=== PATIENT | male | born 1965 | race Caucasian/White ===

== ENCOUNTER 2024-05-22 16:01 | Observation (INO) | payer OTHER, SELFPAY ==
[2024-05-22 12:46] VITALS: BP 140/107
[2024-05-22 12:49] LABS: Glucose - Point of Care 360 mg/dl (70-99)
[2024-05-22 13:12] LABS: Urine Albumin 1+ (Neg - Trace); Urine Bilirubin Negative (Negative); Urine Character Clear (Clear); Urine Color Yellow; Urine Glucose 4+ (Negative); Urine Ketone 2+ (Negative); Urine Leukocyte Negative (Negative); Urine Nitrite Negative (Negative); Urine Occult Blood Negative (Negative); Urine Specific Gravity 1.015 (<1.030); Urine Urobilinogen Negative (Neg - 1+)
[2024-05-22 13:39] LABS: Urine Mucus Few
[2024-05-22 13:40] LABS: Urine Squamous Cell 0-2 /LPF (Few)
[2024-05-22 13:41] LABS: Urine Bacteria Few (Negative); Urine Red Blood Cell 0-2 /HPF (0-2); Urine White Cell 0-2 /HPF (0-5)
[2024-05-22] MEDS: NSS 1000 IV ×3 (13:41→17:22)
[2024-05-22 13:50] LABS: % Basophils 1.5 % (0-2); % Eosinophils 2.1 % (0-6); % Immature Granulocytes 0.4 % (0-0.5); % Monocytes 8.7 % (1.7-9.3); % Neutrophils 62.3 % (42.2-75.2); Absolute Basophils 0.1 10^3/uL (0-0.2); Absolute Eosinophils 0.1 10^3/uL (0-0.7); Absolute Lymphocytes 1.2 10^3/uL (1.2-3.4); Absolute Monocytes 0.4 10^3/uL (0.1-0.6); Absolute Neutrophils 2.9 10^3/uL (1.4-6.5); Hematocrit 40.4 % (39.0-52.0); Hemoglobin 14.7 g/dL (13.0-18.0); Mean Corp Hgb Conc. 36.4 g/dL (33.0-37.0); Mean Corpuscular Hgb 29.9 pg (27.0-31.0); Mean Corpuscular Volume 82.3 fL (80.0-94.0); Nucleated Red Blood Cells % 0 % (-); Platelet Count 207 10^3/uL (130-400); Red Blood Cell Count 4.91 10^6/uL (4.70-6.10); Red Cell Dist. Width 13.6 % (11.5-14.5); White Blood Cell Count 4.7 10^3/uL (4.8-10.8)
[2024-05-22 14:00] VITALS: BP 111/69
[2024-05-22 14:11] LABS: ALT (SGPT) 41 U/L (0-50); AST (SGOT) 25 U/L (17-59); Albumin 4.2 g/dl (3.5-5.0); Alkaline Phosphatase 142 U/L (38-126); Blood Urea Nitrogen 15 mg/dl (9-20); Calcium 9.1 mg/dl (8.4-10.2); Carbon Dioxide 20 mmol/L (22-30); Chloride 99 mmol/L (98-107); Glucose 360 mg/dl (70-99); Potassium 4.3 mmol/L (3.5-5.1); Sodium 129 mmol/L (135-145); Total Bilirubin 1.2 mg/dl (0.2-1.3); Total Protein 6.9 g/dl (6.3-8.2); eGFR > 60.00
[2024-05-22 14:18] LABS: B-Hydroxybutyrate 0.42 mmol/L (0.02-0.27)
[2024-05-22 15:00] VITALS: BP 99/65
--- NOTE | 2024-05-22 15:09 | HPS.HSE ---
Family Physician
-
Family Physician: Carmen Reyna
Chief Complaint
-
abnormal labs, diabetes
History of Present Illness
Mr. Bennett Gaines is a 58 yo man with hx CAD, HTN, HLD, GERD, RA sent to the ER with new diagnosis diabetes and abnormal labs.
Patient states a few weeks ago, his roommate came home with a [place] ice cream and after eating this he had this sensation of constant thirst and frequent urination. Previous to this he denies eating a diet high in sugar intake, does not drink
sodas. He received labs as outpatient yesterday (ordered by his RA) and he was noted to have elevated glucose, HgA1c of 11. He was sent to the ER for concern for DKA.
Currently denies fevers/chills, no chest pain or shortness of breath. No nausea/vomiting/diarrhea. Mild LLQ pain thought 2/2 gas. Had normal BM earlier. No LE swelling.
Medical History
Past Medical History
Past Medical History: Reports Other ( CAD, HTN, HLD, GERD)
Past Surgical History: Reports Other
Social History
Tobacco: Former Smoker (quit one year ago)
Alcohol: None
Family History
Family History: Not pertinent
Allergies / Home Medications
Allergies reflects when Allergies were last updated in [facility].
Home Medications with original date entered in [facility]
Allergy/Medication List:
Allergies
Allergy/AdvReac Type Severity Reaction Status Date / Time
hydrochlorothiazide Allergy Pharmacy Verified 10/02/20 13:37
[From [facility]] to Review
lisinopril Allergy COUGH Verified 10/02/20 13:37
losartan potassium Allergy Pharmacy Verified 10/02/20 13:37
[From [facility]] to Review
Penicillins Allergy Rash Verified 10/02/20 13:37
PISTACHIO NUTS Allergy Rash Uncoded 10/02/20 13:37
seasonal Allergy asthma Uncoded 10/02/20 13:37
Home Medications
cholecalciferol (vitamin D3) 25 mcg (1,000 unit) capsule (Vitamin D3) 1,000 unit PO DAILY 07/21/20
escitalopram oxalate 10 mg tablet 10 mg PO DAILY 07/21/20
omeprazole magnesium 20 mg tablet,delayed release (Prilosec OTC) 20 mg PO DAILY 07/21/20
aspirin 81 mg tablet,delayed release 81 mg PO DAILY 05/22/24
atorvastatin 40 mg tablet (Lipitor) 40 mg PO QPM 05/22/24
etanercept 50 mg/mL (1 mL) subcutaneous syringe (Enbrel) 50 mg SC FR 05/22/24
meloxicam 15 mg tablet 15 mg PO DAILYPRN PRN mild pain 05/22/24
Review of Systems
-
History Source: Patient
A 12 point ROS was completed and negative except as noted: Yes
Physical Exam
Vital Signs
Vital Signs
Temp Pulse Resp BP Pulse Ox
98.5 F 72 17 111/69 95
05/22/24 12:46 05/22/24 14:45 05/22/24 14:45 05/22/24 14:00 05/22/24 14:30
Physical Exam
General: No Apparent Distress and Conversant
Respiratory: Clear; No Wheezes
Cardiac: S1/S2 and Regular Rhythm
GI: Soft and Non Tender
Musculoskeletal: No Edema
Skin: Warm and Dry; No Rash
Neuro: AO x 3
Psych: Calm
Laboratory Results
-
05/22/24 13:40
05/22/24 13:40
Laboratory Results
Total Bilirubin 1.2 mg/dl (0.2-1.3) 05/22/24 13:40
AST 25 U/L (17-59) 05/22/24 13:40
ALT 41 U/L (0-50) 05/22/24 13:40
Alkaline Phosphatase 142 U/L (38-126) H 05/22/24 13:40
Data Reviewed
-
Diagnostic Radiology: Report Reviewed by me
Lab Data: Labs Reviewed by me
Impression/Plan
-
Mr. Bennett Gaines is a 58 yo man with hx CAD, HTN, HLD, GERD sent to the ER with new diagnosis diabetes and abnormal labs.
Triage VS: T 98.5, P 96, RR 18, BP 140/107, SpO2 98% RA
LABS: WBC 4.7, Hg 14.7, PLT 207, Na 129 (corrected 133), K+ 4.3, Cl 99, CIO2 20, BUN 15, Cr 0.7, Glucose 360, T. Bili 1.2, AST 25, ALT 41, Alk Phos 142
AG = 10
MAR NS IVF x 2
Uncontrolled DM with Hyperglycemia
-CO2 20; AG = 10 therefore does not meet criteria for DKA
-s/p 2 L NS IVF
-case discussed between ER and Dr. Akhtar, recommends admission for insulin teaching etc.
-will give Lantus 10 units x 1 now
-admit to med/surg, Observation
-ISS low
-keep NPO until BGL < 250 (NS while NPO)
-LIQUIFIED NATURAL GAS SPECIALIST DM consult
CAD
-DIRECTOR DATABASE Asa/statin
Anxiety/Depression
-DIRECTOR DATABASE Lexapro
RA
-DIRECTOR DATABASE Enbrel
GERD
-DIRECTOR DATABASE PPI
Pseudohyponatremia
DVT PPx Lovenox subQ
FULL CODE
[2024-05-22] MEDS: LANTUS 0.1 UNITS SC (15:44)
[2024-05-22 16:00] VITALS: BP 104/73
[2024-05-22 16:28] VITALS: BP 113/82
[2024-05-22 16:29] VITALS: BMI 23.2
[2024-05-22 17:30] LABS: Glucose - Point of Care 278 mg/dl (70-99)
[2024-05-22] MEDS: NOVOLOG FLEXPEN-LOW RESISTANCE 3 UNITS SC (17:57)
[2024-05-22] MEDS: LOVENOX 40 MG SC (18:58)
[2024-05-22] MEDS: LIPITOR PO (18:58)
[2024-05-22] MEDS: TYLENOL 650 MG PO (18:59)
[2024-05-22 20:36] LABS: Blood Urea Nitrogen 13 mg/dl (9-20); Calcium 8.4 mg/dl (8.4-10.2); Carbon Dioxide 21 mmol/L (22-30); Chloride 104 mmol/L (98-107); Estimated Creatinine Clearance > 125 ml/min; Glucose 219 mg/dl (70-99); Potassium 3.8 mmol/L (3.5-5.1); Sodium 134 mmol/L (135-145); eGFR > 60.00
[2024-05-22 22:43] LABS: Glucose - Point of Care 213 mg/dl (70-99)
[2024-05-22 23:14] VITALS: BP 107/69
[2024-05-23] MEDS: NSS 1000 IV (06:11)
[2024-05-23 07:11] VITALS: BP 99/64
--- NOTE | 2024-05-23 07:51 | PN.DE.MGMTRT ---
Insulin Management
- -
05/23/2024: Diabetes management Consult
58 year old male with PMH: CAD, HTN, HLD, GERD, RA, Anxiety and Depression, sent to the ER with new diagnosis diabetes and abnormal labs.
Patient states a few weeks ago, his roommate came home with a [place] ice cream and after eating this he had this sensation of constant thirst and frequent urination. Previous to this he denies eating a diet high in sugar intake, does not drink
sodas. He had outpatient labs yesterday that showed elevated glucose, HgA1c of 11. He was sent to the ER for concern for DKA. Glucose on admission was 360. Pt was started on Lantus 10 units and low corrective insulin with meals
Pt awake, alert, oriented, sitting up in bed, eating lunch, offers no complaints, able to discuss diabetes care plan.
Glucose remains elevated >200. HS glucose was 219 and FBG 255(V), 250 POC this AM. A1C 11%, Cr 0.6, eGFR >60
Nursing reports that pt is constantly asking for food and is eating more than his allotted calories.
Will start Lantus 15 units @ hs, NovoLog 6 units AC and Metformin 500mg BID. Anticipate higher insulin requirements given current A1C and excessive eating.
Will cont to follow. Consult Dietitian for malnutrition.
Diabetes History
- -
Type of Diabetes: 2 requiring insulin
Pre-Admission Diabetes Regimen
05/22/24 05/22/24 05/22/24
13:40 20:00 20:13
Creatinine 0.7 Cancelled 0.6 L
Insulin Pump Settings
IP Diabetes Regimen
05/22/24 05/22/24 05/22/24
12:48 13:40 17:29
Glucose 360 H
POC Glucose 360 H 278 H
05/22/24 05/22/24 05/22/24
20:00 20:13 22:42
Glucose Cancelled 219 H
POC Glucose 213 H
Patient Education
[2024-05-23 07:59] LABS: Glucose - Point of Care 250 mg/dl (70-99)
[2024-05-23 08:46] LABS: Hematocrit 35.9 % (39.0-52.0); Mean Corp Hgb Conc. 36.2 g/dL (33.0-37.0); Mean Corpuscular Hgb 30.5 pg (27.0-31.0); Mean Corpuscular Volume 84.3 fL (80.0-94.0); Mean Platelet Volume 11.6 fL (7.4-10.4); Platelet Count 179 10^3/uL (130-400); Red Blood Cell Count 4.26 10^6/uL (4.70-6.10); Red Cell Dist. Width 13.7 % (11.5-14.5); White Blood Cell Count 3.2 10^3/uL (4.8-10.8)
[2024-05-23] MEDS: NOVOLOG FLEXPEN-LOW RESISTANCE 3 UNITS SC ×2 (08:56→18:31)
[2024-05-23] MEDS: NOVOLOG FLEXPEN 6 UNITS SC ×2 (08:57→12:14)
[2024-05-23] MEDS: PROTONIX 40 MG PO (08:58)
[2024-05-23] MEDS: LEXAPRO 10 MG PO (08:58)
[2024-05-23] MEDS: ASPIR LOW (ENTERIC COATED) 81 MG PO (08:58)
[2024-05-23] MEDS: LIPITOR 40 MG PO (08:59)
[2024-05-23 09:22] LABS: Blood Urea Nitrogen 9 mg/dl (9-20); Calcium 8.3 mg/dl (8.4-10.2); Carbon Dioxide 22 mmol/L (22-30); Chloride 106 mmol/L (98-107); Estimated Creatinine Clearance > 125 ml/min; Glucose 255 mg/dl (70-99); Magnesium 1.9 mg/dl (1.6-2.3); Potassium 3.9 mmol/L (3.5-5.1); Sodium 135 mmol/L (135-145); eGFR > 60.00
--- NOTE | 2024-05-23 09:50 | W.PN.HOSP.TC ---
Addendum entered and electronically signed by Arorn Hernandez MD 05/23/24 22:23:
Attending Addendum-
I saw and evaluated the patient. I reviewed the resident�s note and agree with findings and plan as documented in the resident�s note. Sub: complains of BAILEY. No other complaints. Ready to go home. Full 12 point ROS reviewed and negative except as
documented Exam: Vitals reviewed in chart GEN-NAD heart RRR lungs clear abd soft LE no edema
#Uncontrolled DM with Hyperglycemia
-hba1c- 11
-UNDERGROUND PRODUCTION FOREPERSON DM consult appreciated and insulin dose adjusted
-patient educated and counselled scripts sent
-L15 N6
#CAD
-ETIOLOGIST Asa/statin
#Anxiety/Depression
-ETIOLOGIST Lexapro
#RA
-ETIOLOGIST Enbrel
#GERD
-ETIOLOGIST PPI
#Pseudohyponatremia
-resolved
# Leukopenia-
repeat CBC as OP
DVT PPx Lovenox subQ
FULL CODE
Dispo DC home
Time spent coordinating care, DC planning, review of DC plan of care with resident, transition of care, review of records, med rec/scripts sent electronically, consults, notes, d/w consultants, nursing, DM education/counselling, and CM� 32 mins
Original Note:
Today's Communication/Plan
-
Diabetic nurse consult and education
discharge
Assessment / Plan
Assessment / Plan
58-year-old male with past medical history of hypertension, hyperlipidemia, arthritis, prostate cancer status post radiation therapy 4 years ago, GERD, history of alcohol use disorder clean for past 7 years, depression, presented to the ED with
increased sensation of constant thirst, frequent urination, elevated glucose, hemoglobin A1c 11. He was sent to the ED by his swatch cutter for concerns of DKA. He is also complaining of left lower quadrant pain that started about 2 weeks ago at
the same time of his increased sensation of thirst and frequency of urination. Complains of pain in lower back as well. Abdominal pain is constant 3 out of 10 pain, however worse when he eats 5 out of 10. Has regular bowel movements, denies
diarrhea or constipation. Anion gap of 10 so did not meet criteria DKA. Put on n.p.o. until blood glucose range less than 250, insulin, fluids.
Uncontrolled DM with hyperglycemia
-Glucose on admission 360, Anion gap 10
-HgA1c 11
-s/p 4L fluids
-Diabetic nurse consult
-s/p 10 units lantus and 12 units aspart
-BG now 255
-Start diabetic diet
-IGG4 pending to eval type 1 diabetes as type 2 less likely given pts healthy lifestyle
LLQ/LUQ pain and lower pack pain
-Hx prostate cancer s/p radiation therapy
-Has noticed recent weight loss, denies recent fever or chills
-PSA wnl
-Further eval outpatient his PCP was notified
CAD
-Continue asa and statin
Anxiety/depression
-Cont lexapro
RA
-Continue etanercept
GERD
-Cont PPI
Pseudohyponatremia
-resolved
DVT lovenox
Full code
Anticipated Discharge: Today
Subjective/Interval History
-
Date of Service: May 23, 2024
Feels foggy, but overall okay
Objective Data
-
Labs:
Laboratory Results
05/23/24
07:59
WBC 3.2 L
Hgb 13.0
Hct 35.9 L
Plt Count 179
Sodium 135
Potassium 3.9
Chloride 106
Carbon Dioxide 22
BUN 9
Creatinine 0.6 L
Glucose 255 H
Calcium 8.3 L
Vital Signs:
Vital Signs
Temp Pulse Resp BP Pulse Ox
97.0 F 61 18 99/64 93
05/23/24 07:11 05/23/24 07:11 05/23/24 07:11 05/23/24 07:11 05/23/24 07:11
I&O
05/22/24 05/23/24 05/24/24
06:59 06:59 06:59
Intake Total 0 / 0
Output Total 0 / 0
Balance 0 / 0
Review of Systems
-
History Source: Patient
EENT: Reports Other (decreased thirst from prior )
Respiratory: Reports No Symptoms
Cardiac: Reports No Symptoms
Abdomen/GI: Reports Abdominal Pain; Denies Nausea, Vomiting, Diarrhea or Constipated
Genitourinary: Reports Frequency (Decreased from prior)
Skin: Reports No Symptoms
Neuro: Reports No Symptoms
Physical Exam
-
General: Well Developed, No Apparent Distress and Comfortable
HEENT: Normocephalic
Respiratory: Clear to Auscultation
Cardiac: Regular Rhythm and S1/S2
GI: Soft, Nondistended, Normal Bowel Sounds and Tender (LUQ, RLQ and LLQ tenderness with palpation, no rebound or guarding. No mid-epigastric )
Musculoskeletal: No Edema
Skin: Warm
Neuro: AO x 3
Psych: Calm
[2024-05-23 11:34] LABS: Glucose - Point of Care 304 mg/dl (70-99)
[2024-05-23 11:37] LABS: PSA, Total - Screen 0.28 ng/ml (0.0-4.0)
[2024-05-23] MEDS: NOVOLOG FLEXPEN-LOW RESISTANCE 4 UNITS SC (12:13)
--- NOTE | 2024-05-23 14:40 | PN.DE.MGMTRT ---
Insulin Management
- -
05/23/2024: Diabetes management Consult
58 year old male with PMH: CAD, HTN, HLD, GERD, RA, Anxiety and Depression, sent to the ER with new diagnosis diabetes and abnormal labs.
Patient states a few weeks ago, his roommate came home with a [place] ice cream and after eating this he had this sensation of constant thirst and frequent urination. Previous to this he denies eating a diet high in sugar intake, does not drink
sodas. He had outpatient labs yesterday that showed elevated glucose, HgA1c of 11. He was sent to the ER for concern for DKA. Glucose on admission was 360. Pt was started on Lantus 10 units and low corrective insulin with meals
Pt awake, alert, oriented, sitting up in bed, eating lunch, offers no complaints, able to discuss diabetes care plan.
Glucose remains elevated >200. HS glucose was 219 and FBG 255(V), 250 POC this AM. A1C 11%, Cr 0.6, eGFR >60
Will start Lantus 15 units @ HS, NovoLog 6 units AC and Metformin 500mg BID. Anticipate higher insulin requirements given current A1C
Will cont to follow. Pt will be seen by Diabetes Nurse Educator for insulin and glucose monitor instructions today
Will consult railroad crossing protection maintainer for New onset Diabetes.
Diabetes History
- -
Type of Diabetes: 2 requiring insulin
Pre-Admission Diabetes Regimen
05/22/24 05/22/24 05/23/24
20:00 20:13 07:59
Creatinine Cancelled 0.6 L 0.6 L
Lab Results
Hemoglobin A1c 11.0 % (4.0-5.6) H 05/22/24 13:40
Insulin Pump Settings
IP Diabetes Regimen
05/22/24 05/22/24 05/22/24
17:29 20:00 20:13
Glucose Cancelled 219 H
POC Glucose 278 H
05/22/24 05/23/24 05/23/24
22:42 07:58 07:59
Glucose 255 H
POC Glucose 213 H 250 H
05/23/24
11:33
Glucose
POC Glucose 304 H
Patient Education
[2024-05-23 15:12] VITALS: BP 99/68
--- NOTE | 2024-05-23 16:36 | CM ---
rate manager viewed patient's chart and patient was admitted under OBS, OBS letter provided to patient, patient lives with roommate, is independent with adl's and ambulation, no dme, patient is for discharge to home today, patient is new diabetic.
PCP: Carmen Reyna
Pharmacy [facility] in [place].
Plan; Home today,.
--- NOTE | 2024-05-23 17:11 | PTCARENOTE ---
I met with Bennett to discuss diabetes self management education. He stated his blood work was not clear if he had type 1 or type 2 diabetes. I reviewed both type 1 and type 2 diabetes and encouraged him to register for the outpatient DSME course. I
assisted in setting up a contour Next EZ glucometer. Bennett had previously purchased a Contour meter at the pharmacy prior to admission and had been monitoring his numbers. Target glucose levels were reviewed and educational material was provided. I
discussed continuous glucose monitoring and provided printed material for him to discuss with his PCP. Long and rapid acting insulin was reviewed; onset/peak duration. Storage and safe administration was discussed and he was able to administer a
practice injection. I encouraged him to give all injections while admitted with the RN supervision. Hyper and hypoglycemia was discussed. Bennett verbalized understanding of low blood sugar treatment and will carry glucose with him at all times. I
encouraged him to wear medical identification and provided resources.
--- NOTE | 2024-05-23 17:24 | W.DCSUMMARY ---
Addendum entered and electronically signed by Arron Hernandez MD 05/23/24 22:24:
Read, reviewed, and agree. See same day progress note for additional details. Metformin added to regimen.
Iain Hernandez MD
Original Note:
Documented by User: Maryann Gaitan MD, Resident 05/23/24 17:29
Discharge Summary
Discharge Data
Date of Admission: 05/22/24
Date of Discharge: 05/23/24
-
Pending Results: Yes
Additional Pending Results:
IGG4
Hospital Course
Primary diagnosis:
Uncontrolled diabetes mellitus with hyperglycemia
Secondary diagnosis:
CAD
Anxiety/depression
Rheumatoid arthritis
GERD
Pseudohyponatremia
Hospital course:
Uncontrolled DM with hyperglycemia
-Recommended to come to ED by quarter folder after lab work results for concerns of DKA and complaints of insatiable thirst and increased urination
-Glucose on admission 360, Anion gap 10
-HgA1c 11
-provided fluids
-Diabetic nurse consult and diabetic education
-IGG4 pending to eval type 1 diabetes as type 2 less likely given pts healthy lifestyle
-Provided insulin at discharge with referral to machining engineer and close follow up with PCP
LLQ/LUQ pain and lower pack pain
-Hx prostate cancer s/p radiation therapy
-Has noticed recent weight loss, denies recent fever or chills
-PSA within normal limits
-Further eval outpatient recommended. His PCP was notified
Today, patient is stable for discharge. Patient provided education on diabetes and appropriate medical therapy. Recommend close follow up with PCP and machining engineer. Unclear cause of sudden onset diabetes.
Discharge Plan
-
Patient Disposition: Home (Routine Discharge)
Discharge Diagnosis/Procedures: New onset diabetes mellitus with hyperglycemia
Condition: Good
Diet: Diabetic, Carb Controlled
Activity: As tolerated
Driving Restrictions: As prior to admission
Bathing Restrictions: None
Referrals:
Farida Akhtar MD [Consulting Staff] - in one to two weeks
Carmen Reyna MD [Family Provider] - in less than 1 week
Prescriptions:
New
metformin 500 mg Tablet
500 mg PO BID@0800,1700 Qty: 60 0RF
Rx Instructions:
take twice a day with food
(DME) Contour Next Test Strips Strip
Qty: 200 0RF
Rx Instructions:
PATIENT TESTING 4 TIMES A DAY
insulin aspart U-100 [Novolog FlexPen U-100 Insulin] 100 unit/mL (3 mL) Insulin Pen
6 unit SC AC Qty: 5 0RF
Rx Instructions:
TAKE 6 UNOTS BEFORE EACH MEAL
insulin glargine [Lantus Solostar U-100 Insulin] 100 unit/mL (3 mL) Insulin Pen
15 unit SC HS Qty: 5 0RF
Rx Instructions:
TAKE 15 UINITS AT BEDTIME
(DME) lancets [Microlet Lancet] Misc
Qty: 200 0RF
Rx Instructions:
Pt testing 4 times a day
(DME) pen needle, diabetic [Ijeoma 2nd Gen Pen Needle] 32 gauge x 5/32' Needle
Qty: 200 0RF
Rx Instructions:
Pt tAKING INSULIN 4 times a day
Continued
cholecalciferol (vitamin D3) [Vitamin D3] 1,000 UNIT capsule
1,000 unit PO DAILY
escitalopram oxalate 10 MG tablet
10 mg PO DAILY
omeprazole magnesium [Prilosec OTC] 20 MG tablet,delayed release (DR/EC)
20 mg PO DAILY
atorvastatin [Lipitor] 40 mg Tablet
40 mg PO QPM
meloxicam 15 mg Tablet
15 mg PO DAILYPRN PRN (Reason: mild pain)
aspirin 81 mg Tablet,Delayed Release (Dr/Ec)
81 mg PO DAILY
Enbrel 50 mg/mL (1 mL) Syringe
50 mg SC FR
Discharge Orders:
Discharge Patient (As Directed); Ordered 05/23/24
Ordered By: Maryann Gaitan
Discharge Date and Time
Discharge Date/Time: 05/23/24 18:49
Print Language: PU[place] R[place]

Documented by User: Arron Hernandez MD 05/23/24 22:19
Discharge Summary
Discharge Data
Date of Admission: 05/22/24
Date of Discharge: 05/23/24
Discharge Plan
-
Patient Disposition: Home (Routine Discharge)
Discharge Diagnosis/Procedures: New onset diabetes mellitus with hyperglycemia
Condition: Good
Diet: Diabetic, Carb Controlled
Activity: As tolerated
Driving Restrictions: As prior to admission
Bathing Restrictions: None
Referrals:
Farida Akhtar MD [Consulting Staff] - in one to two weeks
Carmen Reyna MD [Family Provider] - in less than 1 week
Prescriptions:
New
metformin 500 mg Tablet
500 mg PO BID@0800,1700 Qty: 60 0RF
Rx Instructions:
take twice a day with food
(DME) Contour Next Test Strips Strip
Qty: 200 0RF
Rx Instructions:
PATIENT TESTING 4 TIMES A DAY
insulin aspart U-100 [Novolog FlexPen U-100 Insulin] 100 unit/mL (3 mL) Insulin Pen
6 unit SC AC Qty: 5 0RF
Rx Instructions:
TAKE 6 UNOTS BEFORE EACH MEAL
insulin glargine [Lantus Solostar U-100 Insulin] 100 unit/mL (3 mL) Insulin Pen
15 unit SC HS Qty: 5 0RF
Rx Instructions:
TAKE 15 UINITS AT BEDTIME
(DME) lancets [Microlet Lancet] Misc
Qty: 200 0RF
Rx Instructions:
Pt testing 4 times a day
(DME) pen needle, diabetic [Ijeoma 2nd Gen Pen Needle] 32 gauge x 5/32' Needle
Qty: 200 0RF
Rx Instructions:
Pt tAKING INSULIN 4 times a day
Continued
cholecalciferol (vitamin D3) [Vitamin D3] 1,000 UNIT capsule
1,000 unit PO DAILY
escitalopram oxalate 10 MG tablet
10 mg PO DAILY
omeprazole magnesium [Prilosec OTC] 20 MG tablet,delayed release (DR/EC)
20 mg PO DAILY
atorvastatin [Lipitor] 40 mg Tablet
40 mg PO QPM
meloxicam 15 mg Tablet
15 mg PO DAILYPRN PRN (Reason: mild pain)
aspirin 81 mg Tablet,Delayed Release (Dr/Ec)
81 mg PO DAILY
Enbrel 50 mg/mL (1 mL) Syringe
50 mg SC FR
Discharge Orders:
Discharge Patient (As Directed); Ordered 05/23/24
Ordered By: Maryann Gaitan
Discharge Date and Time
Discharge Date/Time: 05/23/24 18:49
Print Language: [place] R[place]
[2024-05-23 17:47] LABS: Glucose - Point of Care 256 mg/dl (70-99)
[2024-05-23] MEDS: NOVOLOG FLEXPEN 10 UNITS SC (18:31)
[2024-05-24 17:45] LABS: IgG Subclass 4 30 mg/dL (1-123)
== END 2024-05-23 18:49 | disposition home or self-care (01) ==
LOC: 4 WEST ACU 16:01
PROVIDERS: Student in an Organized Health Care Education/Training Program; ADMITTING PHYSICIAN Student in an Organized Health Care Education/Training Program; ATTENDING PHYSICIAN Family Medicine; EMERGENCY PHYSICIAN Emergency Medicine; FAMILY PHYSICIAN Family Medicine
DX: E11.65 Type 2 diabetes mellitus with hyperglycemia (principal); Z87.891 Personal history of nicotine dependence; I25.10 Atherosclerotic heart disease of native coronary artery without angina pectoris; F41.9 Anxiety disorder, unspecified; F32.A Depression, unspecified; M06.9 Rheumatoid arthritis, unspecified; K21.9 Gastro-esophageal reflux disease without esophagitis; D72.819 Decreased white blood cell count, unspecified; R10.12 Left upper quadrant pain; Z92.3 Personal history of irradiation; Z85.46 Personal history of malignant neoplasm of prostate; E78.5 Hyperlipidemia, unspecified; I10 Essential (primary) hypertension; M19.90 Unspecified osteoarthritis, unspecified site; Z79.82 Long term (current) use of aspirin; Z88.0 Allergy status to penicillin
CPT/HCPCS: 80048; 80053; 81003; 81015; 82010; 82787; 82962; 83036; 83735; 85025; 85027; 93005; G0103; G0378

== ENCOUNTER → 2024-06-05 14:29 | Outpatient (REF) | payer OTHER, SELFPAY | LOC: HWRAD 14:29 | PROVIDERS: ATTENDING PHYSICIAN Physician Assistant | DX: N50.811 Right testicular pain (principal); N50.812 Left testicular pain | CPT/HCPCS: 76870; 93976 ==

== ENCOUNTER → 2024-06-06 12:30 | Outpatient (REF) | payer OTHER, SELFPAY | LOC: RAD 12:30 | PROVIDERS: ATTENDING PHYSICIAN Physician Assistant; FAMILY PHYSICIAN Family Medicine | DX: R10.32 Left lower quadrant pain (principal) | CPT/HCPCS: 74177; Q9967 ==

== ENCOUNTER → 2024-07-09 12:02 | Outpatient (REF) | payer OTHER, SELFPAY | LOC: PET 12:02 | PROVIDERS: ATTENDING PHYSICIAN Internal Medicine Critical Care Medicine | DX: R91.1 Solitary pulmonary nodule (principal) | CPT/HCPCS: 78815; A9552 ==

== ENCOUNTER → 2024-07-18 09:20 | Outpatient (REF) | payer OTHER, SELFPAY | LOC: HWRAD 09:20 | PROVIDERS: ATTENDING PHYSICIAN Physician Assistant; FAMILY PHYSICIAN Family Medicine | DX: E04.9 Nontoxic goiter, unspecified (principal) | CPT/HCPCS: 76536 ==

== ENCOUNTER → 2024-07-30 11:53 | Outpatient (REF) | payer OTHER, SELFPAY ==
[2024-07-30 12:24] VITALS: BP 173/88; BP_SYST 73
== END ==
LOC: RADI 11:53
PROVIDERS: ATTENDING PHYSICIAN Physician Assistant; FAMILY PHYSICIAN Family Medicine
DX: E04.1 Nontoxic single thyroid nodule (principal); E06.3 Autoimmune thyroiditis
CPT/HCPCS: 88173; 10005

== ENCOUNTER → 2024-08-15 13:31 | Outpatient (REF) | payer OTHER, SELFPAY | LOC: HWRAD 13:31 | PROVIDERS: ATTENDING PHYSICIAN Internal Medicine Critical Care Medicine; FAMILY PHYSICIAN Family Medicine | DX: R91.1 Solitary pulmonary nodule (principal) | CPT/HCPCS: 71250 ==

== ENCOUNTER 2024-09-05 16:52 | Inpatient (IN) | payer OTHER, SELFPAY ==
[2024-09-03 11:29] LABS: Hematocrit 42.2 % (39.0-52.0); Hemoglobin 14.3 g/dL (13.0-18.0); Mean Corp Hgb Conc. 33.9 g/dL (33.0-37.0); Mean Corpuscular Hgb 29.4 pg (27.0-31.0); Mean Corpuscular Volume 86.8 fL (80.0-94.0); Mean Platelet Volume 11.5 fL (7.4-10.4); Platelet Count 224 10^3/uL (130-400); Red Blood Cell Count 4.86 10^6/uL (4.70-6.10); Red Cell Dist. Width 14.4 % (11.5-14.5); White Blood Cell Count 4.7 10^3/uL (4.8-10.8)
[2024-09-03 11:34] LABS: INR 0.93
[2024-09-03 11:35] LABS: APTT 31.6 Sec (23.4-35.0)
[2024-09-03 12:01] LABS: Blood Urea Nitrogen 22 mg/dl (9-20); Calcium 9.2 mg/dl (8.4-10.2); Carbon Dioxide 23 mmol/L (22-30); Chloride 111 mmol/L (98-107); Glucose 102 mg/dl (70-99); Potassium 4.4 mmol/L (3.5-5.1); Sodium 142 mmol/L (135-145); eGFR > 60.00
[2024-09-03 13:57] VITALS: BMI 24.0
[2024-09-05] VITALS (19 sets, daily range): BP systolic 67–161; BP diastolic 44–94; BMI 24.0; BMI 23.2
[2024-09-05] MEDS: VENTOLIN NEBULES 2.5 MG INH (10:59)
[2024-09-05 11:06] LABS: Glucose - Point of Care 118 mg/dl (70-99)
[2024-09-05] MEDS: NSS 500 IV (11:06)
[2024-09-05 12:53] LABS: Glucose - Point of Care 121 mg/dl (70-99)
[2024-09-05 14:12] LABS: Glucose - Point of Care 164 mg/dl (70-99)
--- NOTE | 2024-09-05 15:16 | HPS.HSE ---
Addendum entered and electronically signed by Jagdish Parker MD 09/06/24 16:40:
Addendum- Forgot to add HPI to note.
59-year-old male past medical history of CAD, hypertension, anxiety/depression, psoriatic arthritis, Raynaud's disease, GERD, type 2 diabetes, prostate cancer s/p radiation, former smoker, hypothyroidism who underwent bronchoscopy guided biopsy of
pulmonary nodule.
After the bronchoscopy he was found to have a moderate right pneumothorax. He felt some mild chest tightness and did have some cough but denied any shortness of breath.
He is a former smoker. Denies alcohol use.
Original Note:
Family Physician
-
Family Physician: Carmen Reyna
Chief Complaint
-
pneumothorax
History of Present Illness
Allergies
Allergy/AdvReac Type Severity Reaction Status Date / Time
lisinopril Allergy COUGH Verified 09/05/24 10:43
Penicillins Allergy Rash Verified 09/05/24 10:43
pistachio nut Allergy RASH-'ONLY Verified 09/05/24 10:43
HAPPENED
ONCE AFTER
ATE ALOT
OF THEM'
pollen extracts Allergy SEASONAL- Verified 09/05/24 10:43
THMA
Home Medications
cholecalciferol (vitamin D3) 25 mcg (1,000 unit) capsule (Vitamin D3) 1,000 unit PO DAILY Supplement 07/21/20
escitalopram oxalate 10 mg tablet 10 mg PO DAILY Depression 07/21/20
omeprazole magnesium 20 mg tablet,delayed release (Prilosec OTC) 20 mg PO DAILY Gastrointestinal Issue 07/21/20
aspirin 81 mg tablet,delayed release 81 mg PO DAILY Autoimmune Disorder 05/22/24
atorvastatin 40 mg tablet (Lipitor) 80 mg PO QPM High Cholesterol 05/22/24
etanercept 50 mg/mL (1 mL) subcutaneous syringe (Enbrel) 50 mg SC FR Autoimmune Disorder 05/22/24
meloxicam 15 mg tablet 15 mg PO DAILYPRN PRN mild pain 05/22/24
metformin 500 mg tablet 500 mg PO BID@0800,1700 Diabetes #60 tabs 05/23/24
insulin aspart U-100 100 unit/mL (3 mL) subcutaneous pen (Novolog FlexPen U-100 Insulin aspart) 8 unit SC AC Diabetes 09/03/24
insulin glargine 100 unit/mL (3 mL) subcutaneous pen (Lantus Solostar U-100 Insulin) 20 unit SC HS Diabetes 09/03/24
levothyroxine 50 mcg tablet 50 mcg PO DAILY 09/03/24
losartan 25 mg tablet 25 mg PO DAILY 09/03/24
magnesium 200 mg tablet 200 mg PO DAILY 09/03/24
tadalafil 10 mg tablet (Cialis) 10 mg PO DAILY 09/03/24
potassium 1 tab PO DAILY 09/05/24
Medical History
Past Medical History
Past Medical History: Reports Other (CAD, anxiety/depression, Raynaud's, psoriatic arthritis, GERD, diabetes, prostate cancer s/p radiation, former smoker, )
Past Surgical History: Reports None
Social History
Tobacco: Former Smoker
Alcohol: None
Drug: None
Family History
Family History: Not pertinent
Allergies / Home Medications
Allergies reflects when Allergies were last updated in [facility].
Home Medications with original date entered in [facility]
Allergy/Medication List:
Allergies
Allergy/AdvReac Type Severity Reaction Status Date / Time
lisinopril Allergy COUGH Verified 09/05/24 10:43
Penicillins Allergy Rash Verified 09/05/24 10:43
pistachio nut Allergy RASH-'ONLY Verified 09/05/24 10:43
HAPPENED
ONCE AFTER
ATE ALOT
OF THEM'
pollen extracts Allergy SEASONAL- Verified 09/05/24 10:43
THMA
Home Medications
cholecalciferol (vitamin D3) 25 mcg (1,000 unit) capsule (Vitamin D3) 1,000 unit PO DAILY Supplement 07/21/20
escitalopram oxalate 10 mg tablet 10 mg PO DAILY Depression 07/21/20
omeprazole magnesium 20 mg tablet,delayed release (Prilosec OTC) 20 mg PO DAILY Gastrointestinal Issue 07/21/20
aspirin 81 mg tablet,delayed release 81 mg PO DAILY Autoimmune Disorder 05/22/24
atorvastatin 40 mg tablet (Lipitor) 80 mg PO QPM High Cholesterol 05/22/24
etanercept 50 mg/mL (1 mL) subcutaneous syringe (Enbrel) 50 mg SC FR Autoimmune Disorder 05/22/24
meloxicam 15 mg tablet 15 mg PO DAILYPRN PRN mild pain 05/22/24
metformin 500 mg tablet 500 mg PO BID@0800,1700 Diabetes #60 tabs 05/23/24
insulin aspart U-100 100 unit/mL (3 mL) subcutaneous pen (Novolog FlexPen U-100 Insulin aspart) 8 unit SC AC Diabetes 09/03/24
insulin glargine 100 unit/mL (3 mL) subcutaneous pen (Lantus Solostar U-100 Insulin) 20 unit SC HS Diabetes 09/03/24
levothyroxine 50 mcg tablet 50 mcg PO DAILY 09/03/24
losartan 25 mg tablet 25 mg PO DAILY 09/03/24
magnesium 200 mg tablet 200 mg PO DAILY 09/03/24
tadalafil 10 mg tablet (Cialis) 10 mg PO DAILY 09/03/24
potassium 1 tab PO DAILY 09/05/24
Review of Systems
-
History Source: Patient
A 12 point ROS was completed and negative except as noted: Yes
Constitutional: Reports No Symptoms
EENT: Reports No Symptoms
Respiratory: Reports See HPI
Cardiac: Reports No Symptoms
Abdomen/GI: Reports No Symptoms
: Reports No Symptoms
Musculoskeletal: Reports No Symptoms
Skin: Reports No Symptoms
Neurological: Reports No Symptoms
Endocrine: Reports No Symptoms
Hematologic/Lymphatic: Reports No Symptoms
Psych: Reports No Symptoms
Physical Exam
Vital Signs
Vital Signs
Temp Pulse Resp BP Pulse Ox
98 F 74 20 127/65 98
09/05/24 13:54 09/05/24 15:00 09/05/24 15:00 09/05/24 15:00 09/05/24 15:05
Physical Exam
General: Well Developed, Well Nourished and No Apparent Distress
HEENT: NormoCephalic, Moist mucous membranes and Atraumatic
Respiratory: Clear
Cardiac: S1/S2 and Regular Rhythm; No Murmur or Rub
GI: Soft, Non Tender, Non Distended and Normal Bowel Sounds; No Organomegaly
Rectal: Deferred by Provider
Musculoskeletal: No Clubbing, No Cyanosis and No Edema
Skin: No Rash
Neuro: Nonfocal/grossly intact
Laboratory Results
-
09/03/24 09:00
09/03/24 08:59
Laboratory Results
PT 13.0 Sec (11.4-14.6) 09/03/24 08:59
INR 0.93 09/03/24 08:59
APTT 31.6 Sec (23.4-35.0) 09/03/24 08:59
Data Reviewed
-
Lab Data: Labs Reviewed by me
Old Records: Reviewed
Impression/Plan
-
IMPRESSION:
PLAN:
#Moderate right-sided pneumothorax after bronchoscopy guided biopsy of pulmonary nodule
- Patient hemodynamically stable at this time without hypoxemia
- Pulmonary following
- Patient to have chest tube placed by IR
# Right middle lobe pulmonary nodule
- Status post bronchoscopy with biopsy today
CAD
- Continue aspirin, statin
Essential hypertension
- Continue losartan
Anxiety/depression
- Continue Lexapro
Psoriatic arthritis
- Continue Enbrel, meloxicam
Raynaud's disease
GERD
- Continue Meprazole
Type 2 diabetes
- Continue Lantus 20 units
- Continue NovoLog 8 units AC
-Insulin sliding scale
- Continue metformin
Prostate cancer s/p radiation
Former smoker
Hypothyroidism
- Continue levothyroxine
Full code
DVT prophylaxis�heparin
Regular diet
--- NOTE | 2024-09-05 16:33 | W.PN.UPDATE ---
Update Note
Progress Note Update
Right chest tube placed, 14 [address] judy harris, with near complete reexpansion of the right lung.
Chest tube to wall suction, no air leak noted.
[2024-09-05 17:07] LABS: Glucose - Point of Care 157 mg/dl (70-99)
--- NOTE | 2024-09-05 17:16 | PTCARENOTE ---
Received patient from IR s/p R chest tube insertion. Pt AAOX3. 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 Pox: 97% 4L NC. Pt c/o chest tube site pain 09/18. Dr. Parker notified via TT. Order received to adm IV Dilaudid. Chest tube to wall suction. Accu check 157.
at bedside. Call lee within reach. Plan of care ongoing.
[2024-09-05] MEDS: DILAUDID 0.5 MG IV ×2 (17:21→21:29)
--- NOTE | 2024-09-05 17:21 | CON.PUL ---
Consultation
Consultation Request
Date/Time Consultation Requested: 09/05/2024
Date/Time Consultation Performed: 09/05/2024
Medical History
-
Chief Complaint: Lung nodule
History of Present Illness:
Patient is a 59 y/o male with incidental lung nodule, mildly PET Avid, SUV 4.3, who had bronchoscopy and biopsies performed 09/05/2024. Post procedure CXR was suggestive of Right sided pneumothorax. Subsequently, IR service was consulted and a chest
tube was placed. Patient was then admitted to the hospitalist service and Pulmonary service was consulted for further work up.
Past Medical History: Reports Other (CAD, anxiety/depression, Raynaud's, psoriatic arthritis, GERD, diabetes, prostate cancer s/p radiation, former smoker, )
Past Surgical History: Reports None
Social History
Tobacco: Former Smoker
Alcohol: None
Drug: None
Family History
Family History: Not pertinent
Allergies / Home Medications
Allergies / Home Medications
Allergies
Allergy/AdvReac Type Severity Reaction Status Date / Time
lisinopril Allergy COUGH Verified 09/05/24 10:43
Penicillins Allergy Rash Verified 09/05/24 10:43
pistachio nut Allergy RASH-'ONLY Verified 09/05/24 10:43
HAPPENED
ONCE AFTER
ATE ALOT
OF THEM'
pollen extracts Allergy SEASONAL- Verified 09/05/24 10:43
THMA
Home Medications
�Medication �Instructions �Recorded �Confirmed �Last Taken �Type
cholecalciferol (vitamin D3) 25 1,000 unit PO DAILY Supplement 07/21/20 09/05/24 09/04/24 08:00 History
mcg (1,000 unit) capsule (Vitamin
D3)
escitalopram oxalate 10 mg tablet 10 mg PO DAILY Depression 07/21/20 09/05/24 09/04/24 08:00 History
omeprazole magnesium 20 mg 20 mg PO DAILY Gastrointestinal 07/21/20 09/05/24 09/04/24 08:00 History
tablet,delayed release (Prilosec Issue
OTC)
aspirin 81 mg tablet,delayed 81 mg PO DAILY Autoimmune Disorder 05/22/24 09/05/24 09/02/24 History
release
atorvastatin 40 mg tablet (Lipitor) 80 mg PO QPM High Cholesterol 05/22/24 09/05/24 09/04/24 21:00 History
etanercept 50 mg/mL (1 mL) 50 mg SC FR Autoimmune Disorder 05/22/24 09/05/24 08/29/24 History
subcutaneous syringe (Enbrel)
meloxicam 15 mg tablet 15 mg PO DAILYPRN PRN mild pain 05/22/24 09/05/24 1 Month Ago History
~08/05/24
metformin 500 mg tablet 500 mg PO BID@0800,1700 Diabetes 05/23/24 09/05/24 09/04/24 17:00 Rx
#60 tabs
insulin aspart U-100 100 unit/mL 8 unit SC AC Diabetes 09/03/24 09/05/24 09/04/24 20:00 History
(3 mL) subcutaneous pen (Novolog 5 units
FlexPen U-100 Insulin aspart)
insulin glargine 100 unit/mL (3 20 unit SC HS Diabetes 09/03/24 09/05/24 09/04/24 22:00 History
mL) subcutaneous pen (Lantus 16 units
Solostar U-100 Insulin)
levothyroxine 50 mcg tablet 50 mcg PO DAILY 09/03/24 09/05/24 09/05/24 06:00 History
losartan 25 mg tablet 25 mg PO DAILY 09/03/24 09/05/24 09/04/24 08:00 History
magnesium 200 mg tablet 200 mg PO DAILY 09/03/24 09/05/24 09/04/24 08:00 History
tadalafil 10 mg tablet (Cialis) 10 mg PO DAILY 09/03/24 09/05/24 09/02/24 History
potassium 1 tab PO DAILY 09/05/24 09/05/24 09/02/24 History
Review of Systems
-
Hematologic/Lymphatic: Other (NO new symptoms reported )
Vitals / Labs / Diagnostic Testing
Vital Signs
Temp Pulse Resp BP Pulse Ox
97.9 F 67 17 133/64 97
09/05/24 16:17 09/05/24 16:44 09/05/24 16:44 09/05/24 16:44 09/05/24 16:35
Lab Data
09/03/24 09:00
09/03/24 08:59
Microbiology
09/05/24 14:02 Bronch Right Middle Lobe Fungal Culture - Preliminary
Culture in progress.
Positive cultures are reported as soon as detected.
Final report to follow in four to five weeks.
Diagnostic Testing:
Physical Exam
-
HEENT: Normocephalic
Cardiovascular: S1/S2
Respiratory: Clear
GI: Soft
Neurology: Awake and Alert
Skin: Warm
General: Comfortable
Assessment
-
#1. Pneumothorax post Bronchoscopy and biopsy
- s/p chest tube placement by IR service
- No air leak noted, good lung expansion
- f/u CXR in AM. Continue -20 cm suction for now
- if no air leak by AM, can clamp trial for 4 hrs and potentially d/c chest tube
#2. Pulmonary nodule, RML
- Known h/o RML, mildly PET Avid (4.4)
- S/p Robotic bronchoscopy, Biopsy and EBUS-TBNA, await pathology
- Hold ASA and s.c. Heparin in view of recent biopsies
#3. H/o Smoking
- 40 pack years history
- Office spirometry without evidence of obstruction, Asymptomatic
- Resume out patient follow up with Dr. Maxwell.
Data:
CT Chest 08/2024: 1. Stable dominant 1.1 cm right middle lobe pulmonary nodule, suspicious for neoplasm.
2. Additional scattered smaller bilateral pulmonary nodules as described, possibly metastases.
PET-CT 06/2024: Mildly FDG avid right middle lobe nodule measuring up to 1.1 cm. Findings may reflect neoplasm. Consider tissue sampling.
No suspicious evidence for FDG avid metastatic disease in the body.
Heterogeneous right thyroid lobe enlargement with diffuse increased FDG activity. Recommend dedicated thyroid ultrasound if not previously performed.
[2024-09-05] MEDS: LIPITOR 80 MG PO (17:47)
[2024-09-05] MEDS: GLUCOPHAGE 500 MG PO (17:47)
[2024-09-05] MEDS: NOVOLOG FLEXPEN-LOW RESISTANCE 1 UNITS SC (17:48)
[2024-09-05] MEDS: NOVOLOG FLEXPEN 8 UNITS SC (17:48)
[2024-09-05 19:57] LABS: Glucose - Point of Care 204 mg/dl (70-99)
[2024-09-05 22:08] LABS: Glucose - Point of Care 141 mg/dl (70-99)
[2024-09-05] MEDS: LANTUS 0.2 UNITS SC (22:08)
[2024-09-06] MEDS: DILAUDID 0.5 MG IV ×4 (02:57→16:10)
[2024-09-06 03:06] VITALS: BP 106/72
[2024-09-06] MEDS: SYNTHROID 50 MCG PO (06:26)
[2024-09-06 07:10] VITALS: BP 107/76
[2024-09-06 07:15] LABS: % Basophils 0.1 % (0-2); % Eosinophils 0.1 % (0-6); % Immature Granulocytes 0.4 % (0-0.5); % Lymphocytes 10.4 % (20.5-51.1); % Monocytes 5.8 % (1.7-9.3); % Neutrophils 83.2 % (42.2-75.2); Absolute Lymphocytes 0.8 10^3/uL (1.2-3.4); Absolute Monocytes 0.4 10^3/uL (0.1-0.6); Absolute Neutrophils 6.3 10^3/uL (1.4-6.5); Hematocrit 39.2 % (39.0-52.0); Hemoglobin 13.6 g/dL (13.0-18.0); Mean Corp Hgb Conc. 34.7 g/dL (33.0-37.0); Mean Corpuscular Volume 86.3 fL (80.0-94.0); Mean Platelet Volume 10.6 fL (7.4-10.4); Nucleated Red Blood Cells % 0 % (-); Platelet Count 211 10^3/uL (130-400); Red Blood Cell Count 4.54 10^6/uL (4.70-6.10); Red Cell Dist. Width 14.2 % (11.5-14.5); White Blood Cell Count 7.6 10^3/uL (4.8-10.8)
[2024-09-06 07:32] LABS: Glucose - Point of Care 122 mg/dl (70-99)
[2024-09-06] MEDS: NOVOLOG FLEXPEN-LOW RESISTANCE SC ×3 (07:34→16:56)
[2024-09-06 07:36] LABS: ALT (SGPT) 31 U/L (0-50); AST (SGOT) 19 U/L (17-59); Albumin 4.3 g/dl (3.5-5.0); Alkaline Phosphatase 75 U/L (38-126); Blood Urea Nitrogen 12 mg/dl (9-20); Carbon Dioxide 20 mmol/L (22-30); Chloride 111 mmol/L (98-107); Estimated Creatinine Clearance 125 ml/min; Glucose 129 mg/dl (70-99); Potassium 4.3 mmol/L (3.5-5.1); Sodium 140 mmol/L (135-145); Total Bilirubin 0.8 mg/dl (0.2-1.3); eGFR > 60.00
[2024-09-06] MEDS: LEXAPRO 10 MG PO (08:13)
[2024-09-06] MEDS: COZAAR 25 MG PO (08:13)
[2024-09-06] MEDS: GLUCOPHAGE 500 MG PO (08:13)
[2024-09-06] MEDS: PROTONIX 40 MG PO (08:13)
[2024-09-06] MEDS: VITAMIN D3 (cholecalciferol) 25 MCG PO (08:13)
[2024-09-06] MEDS: NOVOLOG FLEXPEN 8 UNITS SC ×2 (08:13→12:44)
[2024-09-06] MEDS: MAG-TAB SR 84 MG PO (08:13)
--- NOTE | 2024-09-06 09:04 | W.PN.HOSP.TC ---
Addendum entered and electronically signed by Schuyler Zepeda MD 09/06/24 16:37:
Total time spent on d/c = 31 min. This included today's physical exam, progress note, review of laboratory and diagnostic data, preparation of discharge documents and prescriptions, and discussions about the pt's hospital course and discharge plan
with the patient and other medical corps officer involved in the patient's care.
Original Note:
Today's Communication/Plan
-
see plan
Assessment / Plan
Assessment / Plan
Gen: NAD, AAOx3.
Eyes: EOMI, PERRLA, no scleral icterus.
Neck: supple.
CV: RRR, +S1/S2, no m/r/g.
Resp: CTAB, no rales, wheezes, or rhonchi.
Abd: +BS, soft, NT, ND
Skin: No rashes.
Neuro: CN 2-12 intact, non-focal.
Psych: Normal mood and affect.
CXR 09/06/24:
1. No significant pneumothorax on the current study.
2. Minimal left basilar subsegmental atelectasis.
Moderate right-sided pneumothorax after bronchoscopy guided biopsy of pulmonary nodule on 09/05/24:
-former tobacco abuse disorder
-remains hemodynamically stable without hypoxemia
-Pulmonary following
-s/p chest tube placed by IR
-follow path from pulm nodule Bx
Other problems:
CAD: cont ASA/statin
Essential HTN: cont ARB
Anxiety/depression: cont Lexapro
Psoriatic arthritis: cont Enbrel, meloxicam
Raynaud's disease
GERD: cont PPI
DM2: cont Lantus/premeal NovoLog/metformin/SSI/accuchecks/diabetic diet
Prostate CA s/p XRT
Hypothyroidism: cont levothyroxine
FULL/heparin
Anticipated Discharge: Within 24 hours
Subjective/Interval History
-
Date of Service: September 06, 2024
Reports R-chest muscular pain.
Objective Data
-
Labs:
Laboratory Results
09/06/24
07:03
WBC 7.6
Hgb 13.6
Hct 39.2
Plt Count 211
Sodium 140
Potassium 4.3
Chloride 111 H
Carbon Dioxide 20 L
BUN 12
Creatinine 0.7
Glucose 129 H
Calcium 9.0
Total Bilirubin 0.8
AST 19
ALT 31
Alkaline Phosphatase 75
Vital Signs:
Vital Signs
Temp Pulse Resp BP Pulse Ox
97.4 F 66 18 107/76 94
09/06/24 07:10 09/06/24 07:10 09/06/24 07:10 09/06/24 07:10 09/06/24 07:10
I&O
09/05/24 09/06/24 09/07/24
06:59 06:59 06:59
Intake Total 125 / 125
Output Total 1400 / 1400
Balance -1275 / -1275
[2024-09-06 09:10] LABS: Glycohemoglobin (HgbA1c) 5.2 % (4.0-5.6)
[2024-09-06 11:10] VITALS: BP 103/68
[2024-09-06 11:19] LABS: Glucose - Point of Care 102 mg/dl (70-99)
--- NOTE | 2024-09-06 12:12 | W.PN.PUL3 ---
Today's Communication / Plan
-
Clamp chest tube
Repeat CXR at 1600
If no PTX recurrence, will remove chest tube
Can leave after chest tube removed from pulmonary perspective, with follow up CXR to be arranged Sunday as an outpatient
Alternatively he can stay and repeat CXR tomorrow
Pulmonary will continue to follow along
Assessment
-
#1. Pneumothorax post Bronchoscopy and biopsy
- s/p chest tube placement by IR service
- No air leak noted, good lung expansion
- CXR this AM (09/06) shows no PTX recurrence --> clamp chest tube today, then repeat CXR in 4 hours. If no PTX recurrence, I will remove chest tube
- Once chest tube removed, he is ok for discharge from pulmonary persepctive, and I will arrange for CXR on Sunday. To be prudent, he can alternatively stay and repeat CXR tomorrow and go home tomorrow
#2. Pulmonary nodule, RML
- Known h/o RML, mildly PET Avid (4.4)
- S/p Robotic bronchoscopy, Biopsy and EBUS-TBNA, await pathology
- Hold ASA and s.c. Heparin in view of recent biopsies
#3. H/o Smoking
- 40 pack years history
- Office spirometry without evidence of obstruction, Asymptomatic
- Resume out patient follow up with Dr. Maxwell.
Data:
CT Chest 08/2024: 1. Stable dominant 1.1 cm right middle lobe pulmonary nodule, suspicious for neoplasm.
2. Additional scattered smaller bilateral pulmonary nodules as described, possibly metastases.
PET-CT 06/2024: Mildly FDG avid right middle lobe nodule measuring up to 1.1 cm. Findings may reflect neoplasm. Consider tissue sampling.
No suspicious evidence for FDG avid metastatic disease in the body.
Heterogeneous right thyroid lobe enlargement with diffuse increased FDG activity. Recommend dedicated thyroid ultrasound if not previously performed.
Total time spent today was 38 minutes for this encounter. Time includes reviewing laboratory test/imaging results, reviewing pertinent medical records, obtaining and reviewing medical history, performing an appropriate exam, ordering medications,
tests and procedures. Time also includes documentation of this encounter, coordinating patient care and communicating with other healthcare professionals. Total time does not include separately billed tests performed on this date of service.
Subjective Data
-
Date of Service:
Date of Service: September 06, 2024
Chief Complaint: Pulmonary Follow Up
Subjective:
Pt seen this AM. R-sided chest tube in place with minimal serosanguinous output. No airleak seen on -[id number] suction. He has chest pain at the chest tube insertion site and right side when he takes a deep breath, but pain has improved. Denies
SOB currently. Denies BAILEY, abd pain, N/V/f/c.
Review of Systems
General: Other (negative unless mentioned above)
Objective Data
Data Reviewed
Vital Signs / I&O / Oxygen:
Vital Signs
Temp Pulse Resp BP Pulse Ox
97.4 F 66 18 107/76 94
09/06/24 07:10 09/06/24 07:10 09/06/24 07:10 09/06/24 07:10 09/06/24 07:10
Intake and Output
09/05/24 09/06/24 09/07/24
06:59 06:59 06:59
Intake Total 125 / 125
Output Total 1400 / 1400
Balance -1275 / -1275
SaO2 94
Nasal Cannula flow liters per 3
minute
Physical Exam
General: Respiratory Distress (negative ), Comfortable, Pain (occasionally in right hemithorax at chest tube insertion site/right hemithorax in general), Chills (negative ) and Sweats (negative )
HEENT: Normocephalic and Anicteric
Cardiovascular: S1-S2 and Peripheral Edema (negative )
Respiratory: Wheeze (negative ), Crackles (right base), Rhonchi (negative ), Non-Labored Respirations and Chest Tube (right hemithorax: -[id number], no air leak, minimal serosanguinous output)
GI: Soft, Non Distended, Non Tender and Normal Bowel Sounds
Neurology: AO x 3 and Tremors (negative )
Skin: Warm, Dry, Cyanosis (negative ) and Jaundice (negative )
Labs/Micro/Reports
Lab Data
09/06/24 07:03
09/06/24 07:03
Microbiology
09/05/24 14:02 Bronch Right Middle Lobe Gram Stain - Preliminary
09/05/24 14:02 Bronch Right Middle Lobe Fungal Culture - Preliminary
Culture in progress.
Positive cultures are reported as soon as detected.
Final report to follow in four to five weeks.
--- NOTE | 2024-09-06 15:50 | CM ---
CM met with pt and his brother bedside
Pt lives with a platonic roommate in a 3SH, 1 threshold to enter
Full flight to 2nds floor sleeping area
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
Indep at baseline and denies use of DMEs
PCP- Carmen Nicole
Rx- JORGE Iniguez
Pt is s/p bronch with chest tube
Likely plan for removal pending CXR
No dc needs anticipated at this time
Discharge Disposition- home, no needs anticipated, family transport
[2024-09-06 16:06] VITALS: BP 98/62
--- NOTE | 2024-09-06 16:31 | W.DCSUMMARY ---
Discharge Summary
Discharge Data
Date of Admission: 09/05/24
Date of Discharge: 09/06/24
-
Pending Results: Yes
Additional Pending Results:
official read of last CXR
Hospital Course
Primary diagnoses:
Moderate right-sided pneumothorax after bronchoscopy guided biopsy of pulmonary nodule on 09/05/24
Secondary diagnoses:
Coronary artery disease
Essential hypertension
Anxiety
Depression
Psoriatic arthritis
Raynaud's disease
Gastroesophageal reflux disease
Type 2 diabetes mellitus
Prostate cancer s/p XRT
Hypothyroidism
Former tobacco abuse disorder
Consultants:
Pulmonary
Imaging:
CXR 09/05/24: Moderate right-sided pneumothorax. No evidence for significant mediastinal shift.
CXR 09/06/24AM: No significant pneumothorax on the current study. Minimal left basilar subsegmental atelectasis.
CXR 09/06/24PM (after CT clamped): No PTX (my read, official read pending)
Hospital course: 59-year-old male who was admitted from interventional radiology after having an iatrogenic, moderate right-sided pneumothorax after bronchoscopy guided biopsy of pulmonary nodule on 09/05/24. The patient had a history of former
tobacco abuse disorder. He was hemodynamically stable at the time of the pneumothorax. He had a chest tube placed to suction. His chest tube was clamped and repeat chest x-ray showed no pneumothorax. Pulmonary saw in consultation. The case was
discussed with Dr. Zapata who is cleared the patient for discharge after he removes the chest tube. The patient is being discharged in medically stable condition. He will need to follow the pathology from his pulmonary nodule biopsy.
Discharge Plan
-
Patient Disposition: Home (Routine Discharge)
Discharge Diagnosis/Procedures: Moderate right-sided pneumothorax after bronchoscopy guided biopsy of pulmonary nodule on 09/05/24
Condition: Good
Diet: Diabetic, Carb Controlled
Activity: No strenuous activity
Driving Restrictions: As prior to admission
Bathing Restrictions: None
Referrals:
Carmen Reyna MD [Family Provider, Family Practice] - in less than 1 week
Prescriptions:
Continued
cholecalciferol (vitamin D3) [Vitamin D3] 1,000 UNIT capsule
1,000 unit PO DAILY
escitalopram oxalate 10 MG tablet
10 mg PO DAILY
omeprazole magnesium [Prilosec OTC] 20 MG tablet,delayed release (DR/EC)
20 mg PO DAILY
atorvastatin [Lipitor] 40 mg Tablet
80 mg PO QPM
meloxicam 15 mg Tablet
15 mg PO DAILYPRN PRN (Reason: mild pain)
aspirin 81 mg Tablet,Delayed Release (Dr/Ec)
81 mg PO DAILY
Enbrel 50 mg/mL (1 mL) Syringe
50 mg SC FR
metformin 500 mg Tablet
500 mg PO BID@0800,1700 Qty: 60 0RF
Rx Instructions:
take twice a day with food
insulin aspart U-100 [Novolog FlexPen U-100 Insulin] 100 unit/mL (3 mL) insulin pen
8 unit SC AC
Rx Instructions:
TAKE 6 UNOTS BEFORE EACH MEAL
insulin glargine [Lantus Solostar U-100 Insulin] 100 unit/mL (3 mL) insulin pen
20 unit SC HS
Rx Instructions:
TAKE 15 UINITS AT BEDTIME
levothyroxine 50 mcg Tablet
50 mcg PO DAILY
losartan 25 mg Tablet
25 mg PO DAILY
magnesium 200 mg Tablet
200 mg PO DAILY
tadalafil [Cialis] 10 mg Tablet
10 mg PO DAILY
potassium
1 tab PO DAILY
Discharge Orders:
Discharge Patient (As Directed); Ordered 09/06/24
Ordered By: Schuyler Zepeda
Discharge Date and Time
Print Language: SLOVAK
[2024-09-06 16:55] LABS: Glucose - Point of Care 93 mg/dl (70-99)
--- NOTE | 2024-09-06 17:30 | W.PN.UPDATE ---
Update Note
Progress Note Update
Follow up CXR shows no PTX recurrence. Chest tube removed without incident. Patient clear to go home from pulmonary perspective. I will arrange for outpatient pulmonary office follow up with a repeat CXR on Sunday to make sure no PTX has
recurred.
[2024-09-06] MEDS: NOVOLOG FLEXPEN SC (18:13)
[2024-09-06] MEDS: GLUCOPHAGE PO (18:13)
[2024-09-06] MEDS: LIPITOR PO (18:14)
== END 2024-09-06 19:45 | disposition home or self-care (01) | DRG 168 ==
LOC: 2 NORTH 16:52
PROVIDERS: Radiology Vascular & Interventional Radiology; ADMITTING PHYSICIAN Hospitalist; ATTENDING PHYSICIAN Internal Medicine; CONSULT PHYSICIAN Internal Medicine; FAMILY PHYSICIAN Family Medicine
PROC: 0BBD8ZX Excision of Right Middle Lung Lobe, Via Natural or Artificial Opening Endoscopic, Diagnostic (ICD-10-PCS; 2024-09-05)
PROC: 8E0W8CZ Robotic Assisted Procedure of Trunk Region, Via Natural or Artificial Opening Endoscopic (ICD-10-PCS; 2024-09-05)
PROC: 0W9930Z Drainage of Right Pleural Cavity with Drainage Device, Percutaneous Approach (ICD-10-PCS; 2024-09-05)
PROC: 07D78ZX Extraction of Thorax Lymphatic, Via Natural or Artificial Opening Endoscopic, Diagnostic (ICD-10-PCS; 2024-09-05)
PROC: 0BB58ZX Excision of Right Middle Lobe Bronchus, Via Natural or Artificial Opening Endoscopic, Diagnostic (ICD-10-PCS; 2024-09-05)
DX: J95.811 Postprocedural pneumothorax (principal); R91.1 Solitary pulmonary nodule; I25.10 Atherosclerotic heart disease of native coronary artery without angina pectoris; E11.9 Type 2 diabetes mellitus without complications; K21.9 Gastro-esophageal reflux disease without esophagitis; L40.50 Arthropathic psoriasis, unspecified; I10 Essential (primary) hypertension; F41.9 Anxiety disorder, unspecified; F32.A Depression, unspecified; I73.00 Raynaud's syndrome without gangrene; E03.9 Hypothyroidism, unspecified; Y84.8 Other medical procedures as the cause of abnormal reaction of the patient, or of later complication, without mention of misadventure at the time of the procedure; I25.2 Old myocardial infarction; Z79.4 Long term (current) use of insulin; Z79.82 Long term (current) use of aspirin; Z79.899 Other long term (current) drug therapy; Z85.46 Personal history of malignant neoplasm of prostate; Z87.891 Personal history of nicotine dependence; Z92.3 Personal history of irradiation
CPT/HCPCS: 32557; 36415; 71045; 76000; 80048; 80053; 82962; 83036; 85025; 85027; 85610; 85730; 87015; 87070; 87102; 87116; 87205; 88112; 88173; 88305; 94640; 99152; C1729; C1769; C1887

== ENCOUNTER → 2024-09-08 14:02 | Outpatient (REF) | payer OTHER, SELFPAY | LOC: RAD 14:02 | PROVIDERS: ATTENDING PHYSICIAN Internal Medicine Critical Care Medicine; FAMILY PHYSICIAN Family Medicine | DX: R06.02 Shortness of breath (principal) | CPT/HCPCS: 71046 ==

== ENCOUNTER 2024-10-24 06:19 | Day surgery (SDC) | payer OTHER, SELFPAY ==
[2024-10-24 08:02] LABS: Glucose - Point of Care 133 mg/dl (70-99)
== END 2024-10-24 14:38 | disposition home or self-care (01) ==
LOC: GI 06:19
PROVIDERS: ATTENDING PHYSICIAN Internal Medicine Gastroenterology; FAMILY PHYSICIAN Family Medicine
DX: Z12.11 Encounter for screening for malignant neoplasm of colon (principal); K64.8 Other hemorrhoids; K22.89 Other specified disease of esophagus; K31.7 Polyp of stomach and duodenum; K22.70 Barrett's esophagus without dysplasia; K29.70 Gastritis, unspecified, without bleeding; K31.89 Other diseases of stomach and duodenum; K20.90 Esophagitis, unspecified without bleeding; K22.9 Disease of esophagus, unspecified; Z86.0100 Personal history of colon polyps, unspecified
CPT/HCPCS: 43239; G0105; 82962; 88305; 88342

== ENCOUNTER → 2024-11-27 08:22 | Outpatient (REF) | payer OTHER, SELFPAY | LOC: HWRAD 08:22 | PROVIDERS: ATTENDING PHYSICIAN Internal Medicine Cardiovascular Disease; FAMILY PHYSICIAN Family Medicine | DX: R09.89 Other specified symptoms and signs involving the circulatory and respiratory systems (principal) | CPT/HCPCS: 93880 ==

== ENCOUNTER → 2025-01-16 11:41 | Outpatient (REF) | payer OTHER, SELFPAY | LOC: HWRAD 11:41 | PROVIDERS: ATTENDING PHYSICIAN Internal Medicine Critical Care Medicine; FAMILY PHYSICIAN Family Medicine | DX: R91.1 Solitary pulmonary nodule (principal) | CPT/HCPCS: 71250 ==